=== PATIENT | female | born 1950 | race Caucasian/White ===

== ENCOUNTER 2017-11-15 08:08 | Day surgery (SDC) | payer MEDICARE, OTHER ==
[~2017-11-15] VITALS: Ht 157.5 cm; Wt 75.1 kg
[2017-11-15] MEDS ORDERED: SERTRALINE (08:42)
[2017-11-15] MEDS ORDERED: HCTZ (08:42)
[2017-11-15] MEDS ORDERED: OMEPRAZOLE (08:42)
[2017-11-15] MEDS ORDERED: AMLODIPINE (08:42)
[2017-11-15] MEDS ORDERED: ASPIRIN (08:42)
[2017-11-15] MEDS ORDERED: ATORVASTATIN (08:42)
[2017-11-15 08:44] VITALS: Ht 157.5 cm; Wt 75.1 kg
[2017-11-15 09:12] VITALS: BP 158/77; PULSE 69; RESP 18
[2017-11-15] MEDS ORDERED: LIDOCAINE 100 MG SYRINGE ONE (10:10)
[2017-11-15] MEDS ORDERED: PROPOFOL 60 ML ONE (10:10)
--- NOTE | 2017-11-15 10:45 | OPPN ---
Date/Time of Note Date/Time of Note DATE: 11/15/17 TIME: 10:44 Operative Report Preoperative Diagnosis Screening colonoscopy Postoperative Diagnosis Occasional diverticulosis of the colon Internal hemorrhoids No colon neoplasm was identified Operation/Procedure Performed Colonoscopy Surgeon see signature line tv production assistant None Anesthesia: MAC Estimated blood loss: none Transfusion Required none Specimen None Grafts/Implants none Complications none JULIA PETERSON MD Nov 15, 2017 10:45
[2017-11-15 11:11] VITALS: BP 150/90; PULSE 67; RESP 16
--- NOTE | 2017-11-15 11:40 | GILP ---
DATE OF PROCEDURE: 11/15/2017 NAME OF PROCEDURE: Colonoscopy. SURGEON: Julia Peterson MD PREOPERATIVE DIAGNOSIS: Screening colonoscopy. POSTOPERATIVE DIAGNOSES 1. Colonoscopy all the way to the cecum. 2. Occasional diverticulosis of the colon. 3. Internal hemorrhoids. 4. No colon neoplasm was identified. INDICATION FOR THE PROCEDURE: Ms. Ynes Singh is a 67-year-old female patient who was scheduled fo r screening colonoscopy. The procedure and possible complications were well explained to the patient. The patient understood and consented to the procedure. DESCRIPTION OF PROCEDURE: Under the influence of anesthesia, the colonoscope was carefully introduc ed in the rectum and under direct vision, it was advanced all the way to the cecum. FINDINGS: The patient had occasional diverticulosis of the colon. She also had internal hemorrhoid s. No colon neoplasm was identified. She tolerated the procedure very well and there was no complication from the procedure. At the end of the procedures, she was awake with stable vital signs and she was discharged home to the care of her family. IMPRESSION: Please see postoperative diagnoses. PLAN: Next screening colonoscopy in 10 years. Dictated By: JULIA MCPHERSON/ALEM Conf#: [id number] DID#: [id number] CC: JULIA PETERSON MD;*EndCC*
== END 2017-11-15 11:03 | disposition home or self-care (01) ==
LOC: GIL 08:08
PROVIDERS: ATTEND Internal Medicine Gastroenterology
DX: Z12.11 Encounter for screening for malignant neoplasm of colon (principal); K57.90 Diverticulosis of intestine, part unspecified, without perforation or abscess without bleeding; K64.8 Other hemorrhoids; I10 Essential (primary) hypertension; E78.5 Hyperlipidemia, unspecified
CPT/HCPCS: J2001